=== PATIENT | female | born 1950 | race Caucasian/White ===

== ENCOUNTER 2016-10-11 08:33 | Emergency (ER) | payer OTHER ==
[~2016-10-11] VITALS: Ht 152.4 cm; Wt 78.2 kg
[~2016-10-11 08:33] MED LIST: DABI150C PO; DILT-17 PO
[2016-10-11 08:48] VITALS: BP 131/81; PULSE 83; O2SAT 99
--- NOTE | 2016-10-11 09:08 | ED.REPORT ---
HPI-Trauma Minor / Fall Date of Service Oct 11, 2016 ED Provider: Luis Jackson MD The patient is a 66 year old female with history of COPD, atrial fibrillation and GERD who presents to the emergency department by EMS for extremity pain that began after she fell down the stairs last night. The patient was walking down the stairs carrying a laundry basket when she missed the last step and fell to the ground. She did not hit her head or lose consciousness. She does complains of bilateral knee pain, lower back pain, and right ankle pain and swelling. She denies headache, chest pain, shortness of breath, neck pain, upper extremity pain or abdominal pain. She is taking Pradaxa for atrial fibrillation. Nursing Notes Stated Complaint: KNEE AND ANKLE PAIN Chief Complaint: Extremity Trauma Nursing Notes Reviewed: Yes Allergies: Coded Allergies: No Known Allergies (Unverified Allergy, Unknown, 06/09/15) Scheduled Cholecalciferol (Vitamin D3) (Vitamin D3) Unknown Strength Tablet Unknown Dose PO WEEKLY Dabigatran Etexilate Mesylate (Pradaxa) 150 Mg Capsule 150 MG PO BID Diltiazem (Diltiazem) 120 Mg Tablet 120 MG PO TID Omeprazole (Omeprazole) 40 Mg Capsule.dr 40 MG PO DAILY Tiotropium Barton (Spiriva) 18 Mcg Cap.w.dev 18 MCG IH DAILY Scheduled PRN Hydrocodone-Acetaminophen 5-325 mg (Hydrocodone-Acetaminophen 5-325 mg) 1 Each Tablet 1 TABLET PO Q4H PRN PRN For Pain General Time Seen by MD: 09:04 Chief Complaint Fall down stairs, Extremity pain Hx Obtained From: Patient, EMS Arrived By: Ambulance Onset Occurred: 1 - 4 hours ago Symptom Duration: Since onset Caused by: Fall down stairs Location: Ankle right Knee left Knee right Quality: Painful Severity: Current: Moderate Severity: Maximum: Severe Recent Healthcare: No recent doctor visit, No recent hospitalization Similar Sx Previous: No Past Medical History Past Medical History COPD GERD IBS Atrial fibrillation on Pradaxa Past Surgical History Ankle surgery Family History Noncontributory Smoking History Former Smoker Social History Alcohol Use: 1-3 per day Drug Use: THC Other Social History: Good social support, , Local resident Ambulatory Status Independent Review of Systems Musculoskeletal: Reports: Back pain, Extremity pain, Joint pain, Joint swelling Neurologic: Denies: Change LOC, Headache, Syncope Complete sys rev & neg: except as marked. Cardiovascular: Denies: Chest pain GI: Denies: Abdominal pain Physical Exam Initial Vital Signs Vital Signs (First) Date Time Temp Pulse Resp B/P Pulse Ox O2 Delivery O2 Flow Rate FiO2 10/11/16 08:48 36.5 83 131/81 99 Initial VS: Reviewed ENT: Mucous membranes moist, Conjunctiva normal, No scleral icterus Respiratory: Breath sounds normal, Clear to auscultation, No respiratory distress Cardiovascular: Regular rate & rhythm, Heart sounds normal, Intact distal pulses Abdomen / GI: Soft, Non-tender, No guarding, No rebound, No distention Lymphatic: No lymphadenopathy Skin: Warm, Dry, No cyanosis Psychiatric: Mood/affect normal, Behavior normal, Normal thought content General/Constitutional: Awake, Alert, Cooperative Neck: Atraumatic, Supple, No swelling, Non-tender, No midline vertebral tend Head / Eyes: Atraumatic, Normocephalic, PERRL, EOMI Upper Extremity / MS: Atraumatic, Inspection NL, Full range of motion, No swelling, Non-tender, No deformity, Neurologic intact, Vascular intact Good radial pulses Lower Extremity / Pelvis / MS: Neurologic intact, Vascular intact, Pelvis stable, Pelvis non-tender The patient has tenderness about her right lateral knee. There is no palpable deformity or swelling. She is slightly tender to her left lateral knee. Her left knee is otherwise atraumatic. Ankle / Foot: Neurologic intact, Vascular intact Tenderness about the right lateral ankle overlying the lateral malleolus. Left ankle is atraumatic. Good DP and PT pulses. Neurologic: Oriented X3, Speech NL, No motor deficits, No sensory deficits, Cerebellar NL, Memory NL Interpretation & Diagnostics Interpretation & Diagnostics: RIGHT KNEE CT W/O CONTRAST: IMPRESSION: No fracture or dislocation. Dictated by: Melani Anglin M.D. on 10/11/2016 at 13:41 X-Ray Interpretation Xray Interpretation: IMPRESSION: Prominent lateral soft tissue swelling, prior surgical procedure the first metatarsal partially visualized, possibly due to a podiatry related operation. Dictated by: Leeroy Mario M.D. on 10/11/2016 at 9:31 X-Ray Ordered: Ankle right Interpretation / Wet Read by: Interpret - Radiologist Xray Interpretation: IMPRESSION: Mild medial compartment joint with narrowing, no fracture found. Dictated by: Leeroy Mario M.D. on 10/11/2016 at 11:43 X-Ray Ordered: Knee left Interpretation / Wet Read by: Interpret - Radiologist Xray Interpretation: IMPRESSION: No trauma found. Dictated by: Leeroy Mario M.D. on 10/11/2016 at 11:52 X-Ray Ordered: Knee right Interpretation / Wet Read by: Vi - Mary Alice Procedures Splint Application - Fx Mgt Splint Application- Fx Mgt: air splint Procedure Performed by: Ball Warper Tender Precise Anatomic Location: right ankle Definitive Fracture Care: Pain control Post-Procedure / Complications: Cap refill normal, Post splint vascular nl, Post splint neuro nl, Condition improved, Tolerated procedure well, Patient stable Splint Post-Application Eval Extremity Condition: Cap refill < 2 sec, Distal sensation intact, Distal motor Intact, No compartment syndrome Re-Eval/Medical Decision Med Decision/Clinical Course The patient is a 66 year old female with history of COPD, atrial fibrillation and GERD who presents to the emergency department by EMS for extremity pain that began after she fell down the stairs last night. The patient was walking down the stairs carrying a laundry basket when she missed the last step and fell to the ground. She did not hit her head or lose consciousness. She does complains of bilateral knee pain, lower back pain, and right ankle pain and swelling. She denies headache, chest pain, shortness of breath, neck pain, upper extremity pain or abdominal pain. She is taking Pradaxa for atrial fibrillation. The emergency department she is afebrile stable vital signs appear quite uncomfortable. I initially treated her with [place] as well as Flexeril for muscle spasm however she continued to have significant pain in her right ankle and bilateral knees. Plain films of her right ankle demonstrated no acute fracture. Plain films of her bilateral knees were also negative for acute fracture. She reported inability to ambulate due to level of pain in her right knee. Therefore, I obtained a CT scan of her right knee which did not identify any occult fracture. She remained neurovascularly intact in her bilateral lower extremities. She was provided with a walker as well as Aircast for her right ankle. Overall presentation at this time is most consistent with ankle sprain ligamentous injury. I see no significant instability of her ankle or knee however. She has been referred to orthopedic surgery for further evaluation should she continue to have significant pain in her right knee and difficulty ambulating. Follow-up and return precautions were given detailed she was discharged in good condition. Of note, she never struck her head and had completely normal neurologic examination therefore I did not obtain neuro imaging. Source of Hx: Old records, EMS Re-Evaluation/Progress #1: Time of Eval: 12:00 Re-Evaluation/Progress Note: Rechecked the patient. She is very distressed about her pain. Will order a CT scan. Re-Evaluation/Progress #2: Time of Eval: 13:52 Re-Evaluation/Progress Note: Rechecked the patient. Discussed CT results, diagnosis, and plan for discharge. All questions were addressed. Counseled Regarding: Diagnosis, Lab results, Need for follow-up, When/why to return to ED Discharge & Departure Impression: Primary Impression: Fall down stairs Encounter type: initial encounter Qualified Code: W10.8XXA - Fall (on) (from ) other stairs and steps, initial encounter Additional Impressions: Contusion of knee, left Encounter type: initial encounter Qualified Code: S80.02XA - Contusion of left knee, initial encounter Contusion of knee, right Encounter type: initial encounter Qualified Code: S80.01XA - Contusion of right knee, initial encounter Right ankle sprain Encounter type: initial encounter Involved ligament of ankle: unspecified ligament Qualified Code: S93.401A - Sprain of unspecified ligament of right ankle, initial encounter Antiplatelet or antithrombotic long-term use Disposition: Home Discharge Condition All VS Reviewed: Yes Condition: Stable Patient Instructions: Ankle Sprain (GEN) Additional Instructions: Thank you for seeking care at the emergency room. Our primary goal today in the ED was to evaluate you for any life-threatening conditions. Your evaluation was reassuring. Use the air splint for your ankle and a walker until your pain is improved. You will be discharged with a prescription for pain medication You can also apply ice and/or heat packs to the painful areas if this helps. Move your knees and ankles as tolerated. You should follow-up with your primary doctor or an orthopedist next week if your symptoms are not improving. We have given you a referral to Dr. Torres. You should return to the ED immediately if you develop increased pain or swelling, numbness, weakness, fevers, chills, vomiting or any other concerning signs or symptoms. Thank you for letting us partake in your care today. Narcotic Pain Medicine You have been prescribed a narcotic for pain relief. These drugs are usually combined with acetaminophen (Tylenol#3, Percocet, Darvocet, Anexsia, Vicodin) or aspirin (Empirin#3, Percodan, Synalogs-DC) for increased effect. Narcotics act on the central nervous system to reduce pain; they also impair mental alertness and physical abilities. We advise you not to drink alcohol, drive a car, or operate dangerous equipment when you are taking these drugs. You can lessen stomach irritation from your medicine by taking it with meals or a full glass of water. Common side effects of narcotics are: Nausea and vomiting, heartburn, constipation, dizziness, sleepiness, and mood changes. If you have bothersome side effects or symptoms of an allergic reaction (itching, hives, rash), stop taking your medicine and call your doctor or the emergency room right away. Please keep your narcotic medicine well out of the reach of children. Referrals: Carolyn Bassett (PCP) Nicko Torres MD Attestation Portions of this note were transcribed by Susana Conley. I, Dr. Jackson personally performed the history, physical exam and medical decision-making; I reviewed and confirmed the accuracy of the information in the transcribed note. Signed by: Kathy Hawkins, 10/11/2016 at 1400. copies to: Carolyn Bassett; Nicko Torres MD, Beck O MD Oct 11, 2016 09:08 Susana Conley Oct 11, 2016 09:12
[2016-10-11] MEDS ORDERED: HYDROmorphone 0.5 mg/0.5 mL iSecure Syringe IVPUSH ONE (09:10)
[2016-10-11] MEDS ORDERED: HYDROcodone-APAP 5-325 mg Tablet PO ONE (09:15)
--- NOTE | 2016-10-11 09:54 | DRSVH ---
PROCEDURE: X-RAY RIGHT ANKLE, MINIMUM THREE VIEWS ([id number]) INDICATIONS: trauma TECHNIQUE: Pre-views of the ankle were acquired. COMPARISON: None. FINDINGS: Bones: Prior fixation screws first metatarsal diaphysis. No definite acute fractures or dislocation s. Ankle mortise is normally aligned. No suspicious bony lesions. Soft tissues: No tibiotalar joint effusion. Achilles tendon appears normal. There is prominent sof t tissue swelling over the lateral malleolus. IMPRESSION: Prominent lateral soft tissue swelling, prior surgical procedure the first metatarsal par tially visualized, possibly due to a podiatry related operation. Dictated by: Leeroy Mario M.D. on 10/11/2016 at 9:31 Approved by: Leeroy Mario M.D. on 10/11/2016 at 9:33
[2016-10-11 11:35] VITALS: BP 123/69; PULSE 61; O2SAT 99
[2016-10-11] MEDS ORDERED: CHOL-9 PO (11:39)
[2016-10-11] MEDS ORDERED: TIOT18CA3 IH (11:39)
[2016-10-11] MEDS ORDERED: DILT120T3 PO (11:39)
[2016-10-11] MEDS ORDERED: OMEP40CA36 PO (11:39)
--- NOTE | 2016-10-11 11:45 | DRSVH ---
PROCEDURE: X-RAY LEFT KNEE, THREE VIEWS ([id number]) INDICATIONS: trauma TECHNIQUE: 3 views of the knee were acquired. COMPARISON: None. FINDINGS: Bones: No fractures or dislocations. No suspicious bony lesions. Soft tissues: No joint effusion. No suspicious soft tissue calcifications. IMPRESSION: Mild medial compartment joint with narrowing, no fracture found. Dictated by: Leeroy Mario M.D. on 10/11/2016 at 11:43 Approved by: Leeroy Mario M.D. on 10/11/2016 at 11:43
--- NOTE | 2016-10-11 11:53 | DRSVH ---
PROCEDURE: X-RAY RIGHT KNEE, THREE VIEWS ([id number]) INDICATIONS: trauma TECHNIQUE: 3 views of the knee were acquired. COMPARISON: None. FINDINGS: Bones: No fractures or dislocations. No suspicious bony lesions. Soft tissues: No joint effusion. No suspicious soft tissue calcifications. IMPRESSION: No trauma found. Dictated by: Leeroy Mario M.D. on 10/11/2016 at 11:52 Approved by: Leeroy Mario M.D. on 10/11/2016 at 11:52
[2016-10-11] MEDS ORDERED: HYDROmorphone 0.5 mg/0.5 mL iSecure Syringe IM ONE (12:10)
[2016-10-11] MEDS ORDERED: Ondansetron 8 mg ODT Tablet ONE (12:47)
--- NOTE | 2016-10-11 13:48 | DRSVH ---
PROCEDURE: CT KNEE RIGHT W/O CONTRAST ([id number]) INDICATIONS: Right knee pain, unable to walk. TECHNIQUE: Noncontrast 1-1.5 mm axial sections acquired from the mid-patella to the proximal tibia, with coronal and sagittal reformats. COMPARISON: [facility], CR, XR KNEE 3VW RT, 10/11/2016, 10:54. FINDINGS: Image quality: Excellent. Bones: No fracture or dislocation. There is osteopenia. Soft tissues: No knee joint effusion. No soft tissue mass or hematoma. IMPRESSION: No fracture or dislocation. Dictated by: Melani Anglin M.D. on 10/11/2016 at 13:41 Approved by: Melani Anglin M.D. on 10/11/2016 at 13:47
[2016-10-11] MEDS ORDERED: HYDR-4003 PO (13:55)
== END 2016-10-11 14:08 | disposition home or self-care (01) ==
LOC: EDBD 08:33 → SED 08:33
DX: S80.02XA Contusion of left knee, initial encounter (principal); S80.01XA Contusion of right knee, initial encounter; S93.401A Sprain of unspecified ligament of right ankle, initial encounter; W10.8XXA Fall (on) (from) other stairs and steps, initial encounter; Y92.018 Other place in single-family (private) house as the place of occurrence of the external cause; Y93.01 Activity, walking, marching and hiking; Y99.8 Other external cause status; K21.9 Gastro-esophageal reflux disease without esophagitis; Z87.891 Personal history of nicotine dependence; Z79.01 Long term (current) use of anticoagulants
CPT/HCPCS: 73562; 73610; 73700; 96372; 99284; J1170